=== PATIENT | male | born 1980 | race Caucasian/White ===

== ENCOUNTER 2022-11-07 07:41 | Emergency (ER) | payer SELFPAY ==
[2022-11-07 07:51] VITALS: BP 144/101; PULSE 62; RESP 20; TEMP 36.6; O2SAT 98; BMI 26.4
--- NOTE | 2022-11-07 07:57 | XR_ITS ---
FINAL REPORT CLINICAL HISTORY: low back pain FINDINGS: No fracture is identified. There is mild degenerative disc disease greatest at L1-2. Alignment is normal. IMPRESSION: Mild degenerative disc disease. Reviewed, Interpreted and Dictated by Jenni Villa MD Transcribed by Gwendolyn Lui Authenticated and [facility]
--- NOTE | 2022-11-07 07:58 | HMH.EDGENADL ---
Discharge Plan Disposition Patient Disposition: Home, Self-Care Condition: Good Prescriptions Prescriptions: New methocarbamol 750 mg tablet 750 mg PO Q8H PRN (Reason: pain) Qty: 20 0RF naproxen 500 mg tablet 500 mg PO Q8H PRN (Reason: pain) Qty: 20 0RF Referrals Follow up/Referrals: Provider,Referral, [Primary Care Provider] - See instructions Activity Restrictions/Add. Instructions Additional Instructions/Restrictions: You were evaluated in the emergency department today. Please follow-up with your primary care provider over the next 3 days. 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 You may also take Tylenol in addition to these. Return to the emergency department for new or worsening symptoms. Clinical Impressions Clinical Impression: Strain of lumbar region Stand Alone Forms Stand Alone Forms: Work/School Release Instructions Patient Instructions: DI for Low Back Pain Discharge ED Provider: Shelly Brand General Adult HPI General Chief complaint: Back Pain/Injury Stated complaint: Lower RT back pain Time Seen by Provider: 11/07/22 07:57 Mode of Arrival: Ambulatory Source of Information: Patient Limitations: No Limitations Description of Symptoms (Recalled from ER Triage Doc. by RN): pt to ed c/o lower back pain. pt states yesterday at approx 1pm he was bent over a counter talking and when he stood up he had sudden pain in his back. pt denies urinary symptoms. History of Present Illness HPI narrative: This patient is a 42-year-old male who reports that he has issues with chronic back pain presenting to the emergency department for evaluation of acute exacerbation of back pain. He states that he was bending over a counter for an extended period of time, and when he stood up he felt pain on the right side of his low back. Since then, he has had pain with any sort of movement, especially twisting and turning. This happened yesterday. He took Aleve at home last night without good improvement. He has not tried any medications today. He denies any other concerns, such as numbness, tingling, saddle anesthesia, incontinence, retention, or other concerns. His pain is nonradiating. Related Data Previous Rx's Medication Instructions Recorded methocarbamol 750 mg tablet 750 mg PO Q8H PRN pain #20 tabs 11/07/22 naproxen 500 mg tablet 500 mg PO Q8H PRN pain #20 tabs 11/07/22 Allergies Allergy/AdvReac Type Severity Reaction Status Date / Time No Known Allergies Allergy Verified 11/07/22 07:56 [facility] Disclaimer: The information contained in this section may have been updated after the patient was seen, as this information can be updated by other users. Social History Smoking Status: Current every day smoker alcohol intake: never current occupational status: employed Travel in the last 8 weeks: None ROS Obtained: Yes All systems reviewed & no additional complaints except as documented 14 point review of systems obtained and negative except as mentioned in HPI Physical Exam General General appearance: alert and in no apparent distress Head Head exam: atraumatic and normocephalic Eye Eye exam: Present normal appearance, PERRL and EOMI ENT ENT exam: Present normal exam, normal oropharynx and mucous membranes moist Neck Neck exam: Present normal inspection, full ROM and trachea midline; Absent tenderness Chest Chest inspection: Present normal inspection and symmetric chest wall rise Respiratory Respiratory exam: Present normal lung sounds bilaterally; Absent respiratory distress or wheezes Cardiovascular Cardiovascular exam: Present regular rate and normal rhythm Abdominal Exam Abdominal exam: Present soft; Absent distention, tenderness or guarding Extremities Exam Extremities exam: Present normal inspection and full ROM; Absent tenderness or edema Back Exam Back exam: Present paraspinal tenderness (
[2022-11-07 09:06] VITALS: BP 151/100; PULSE 59; RESP 18; TEMP 36.6; O2SAT 99
== END 2022-11-07 09:07 | disposition home or self-care (01) ==
PROVIDERS: Emergency Provider Emergency Medicine
DX: X50.1XXA Overexertion from prolonged static or awkward postures, initial encounter; F17.200 Nicotine dependence, unspecified, uncomplicated; S39.012A Strain of muscle, fascia and tendon of lower back, initial encounter
CPT/HCPCS: 72100; 99283; 99284

== ENCOUNTER 2022-11-10 08:08 | Emergency (ER) | payer SELFPAY ==
[2022-11-10 08:08] VITALS: BP 137/83; PULSE 41; RESP 18; TEMP 36.9; O2SAT 100; BMI 26.4
[2022-11-10 08:23] VITALS: BP 137/83; PULSE 46; RESP 18; O2SAT 99
[2022-11-10 08:31] VITALS: BP 141/70; PULSE 46; RESP 18; O2SAT 99
[2022-11-10 09:01] VITALS: BP 143/74; PULSE 46; O2SAT 100
--- NOTE | 2022-11-10 09:05 | PC.NURSE ---
rounded on pt asked about medication the Dr might call in something new and if he should continue to take meds hes on now or stop them, spoke with er md and he says he sending in new medication and stop taking other but keep it do not discard its, updating pt with info received from er
--- NOTE | 2022-11-10 09:16 | ECG_ITS ---
APPROVED REPORT Exam: Resting ECG HR:68 bpm ECG Measurements Heart Rate 68 AXES HI 161 P 66 QRSd 97 QRS 43 QT 386 T 58 QTc 404 Conclusion SINUS RHYTHM WITH FREQUENT VENTRICULAR PREMATURE COMPLEXES IN A BIGEMINAL PATTERN ABNORMAL RHYTHM ECG UNCONFIRMED REPORT Electronically signed by : Kike Perez MD 11/10/2022 15:00:04
--- NOTE | 2022-11-10 09:20 | PC.NURSE ---
MD notified of patient's bradycardia upon discharge. Obtained an EKG prior to discharge; MD requested us to give patient information for cardiology office. Patient ambulated out of ER in no obvious distress at this time.
--- NOTE | 2022-11-10 09:23 | HMH.EDGENADL ---
Discharge Plan Disposition Patient Disposition: Home, Self-Care Condition: Fair Prescriptions Prescriptions: New tizanidine 4 mg tablet 4 mg PO TID PRN (Reason: muscle spasticity) Qty: 30 0RF No Action methocarbamol 750 mg tablet 750 mg PO Q8H PRN (Reason: pain) Qty: 20 0RF naproxen 500 mg tablet 500 mg PO Q8H PRN (Reason: pain) Qty: 20 0RF Referrals Follow up/Referrals: Provider,Referral, MD [Primary Care Provider] - See instructions Clinical Impressions Clinical Impression: Strain of lumbar region Stand Alone Forms Stand Alone Forms: Work/School Release Instructions Patient Instructions: DI for Low Back Pain Discharge ED Provider: Broderick Gallegos General Adult HPI General Chief complaint: Back Pain/Injury Stated complaint: back pain, no accident Time Seen by Provider: 11/10/22 08:15 Mode of Arrival: Ambulatory Source of Information: Patient Limitations: No Limitations Description of Symptoms (Recalled from ER Triage Doc. by RN): Patient ambulated to room upon arrival to ED Patient stated he was seen in the ED on Sunday and was sent home on Naproxen and Robaxin. He has been taking both since being discharged and stated he started getting better Sunday but then got worse after. Patient said he took his meds at 0600 and is still in a lot of pain. History of Present Illness HPI narrative: Patient is a 42-year-old male with past medical history of lumbar stenosis who presents with concern for back pain. He says that he was seen a few days ago for right-sided low back pain. He says that he tried to go back to work today and was sent home because he was in so much pain. He denies any numbness or tingling to his extremities. He has been taking his naproxen and Robaxin as prescribed which is helping a little but says that he still has quite a bit of pain. Denies any bowel or bladder incontinence. The pain is worse with movement. Relieved with rest. Related Data Previous Rx's Medication Instructions Recorded methocarbamol 750 mg tablet 750 mg PO Q8H PRN pain #20 tabs 11/07/22 naproxen 500 mg tablet 500 mg PO Q8H PRN pain #20 tabs 11/07/22 tizanidine 4 mg tablet 4 mg PO TID PRN muscle spasticity 11/10/22 #30 tabs Allergies Allergy/AdvReac Type Severity Reaction Status Date / Time No Known Allergies Allergy Verified 11/07/22 07:56 [facility] Disclaimer: The information contained in this section may have been updated after the patient was seen, as this information can be updated by other users. Social History (Updated 11/07/22 @ 09:20 by Shelly Brand DO) Smoking Status: Current every day smoker alcohol intake: never current occupational status: employed Travel in the last 8 weeks: None ROS Obtained: Yes All systems reviewed & no additional complaints except as documented Physical Exam General General appearance: alert and in no apparent distress Head Head exam: atraumatic, normocephalic and normal inspection Eye Eye exam: Present normal appearance and PERRL ENT ENT exam: Present normal exam, mucous membranes moist and normal external ear exam Neck Neck exam: Present normal inspection and trachea midline Chest Chest inspection: Present normal inspection and symmetric chest wall rise Respiratory Respiratory exam: Present normal lung sounds bilaterally; Absent respiratory distress Cardiovascular Cardiovascular exam: Present normal rhythm and bradycardia Abdominal Exam Abdominal exam: Present soft; Absent distention, tenderness or guarding Extremities Exam Extremities exam: Present normal inspection; Absent edema Back Exam Back exam: Present tenderness (Right low paraspinal region) Neurological Exam Neurological exam: Present alert and oriented X3 Psychiatric Psychiatric exam: Present normal affect and normal mood Skin Skin exam: Present warm, dry, intact and normal color Medical Decision Making Medical Records Medical records reviewed: Yes I re
[2022-11-10 09:27] VITALS: BP 139/84; PULSE 40; RESP 18; TEMP 36.9
== END 2022-11-10 09:20 | disposition home or self-care (01) ==
PROVIDERS: Emergency Provider Student in an Organized Health Care Education/Training Program
DX: S39.012A Strain of muscle, fascia and tendon of lower back, initial encounter (principal); M48.061 Spinal stenosis, lumbar region without neurogenic claudication; F17.200 Nicotine dependence, unspecified, uncomplicated; X58.XXXA Exposure to other specified factors, initial encounter; R00.1 Bradycardia, unspecified
CPT/HCPCS: 93005; 96372; 99283; 99284

== ENCOUNTER 2022-11-15 07:35 | Emergency (ER) | payer SELFPAY ==
[2022-11-15] VITALS (7 sets, daily range): BP systolic 118–139; BP diastolic 67–102; PULSE 56–70; RESP 17–18; TEMP 36.4–37; O2SAT 96–100; BMI 26.4
[2022-11-15 07:43] LABS: Microscopic, Urine URINE MICROSCOPIC (MICROSCOPIC)
[2022-11-15 07:44] LABS: Appearance,Urine CLEAR (Clear); Bilirubin,Urine Negative (Negative); Blood, Urine Negative (Negative); Color,Urine YELLOW (Yellow); Glucose,Urine (UA) Negative (Negative); Ketones,Urine Negative (Negative); Leukocyte Esterase,Urine Negative (Negative); Nitrate,Urine Negative (Negative); PH,Urine 6.5 (5.0-8.5); Protein,Urine Negative (Negative); Urobilinogen,Urine 0.2 EU/dl (0.2)
--- NOTE | 2022-11-15 07:54 | PC.NURSE ---
ED MD AT BEDSIDE FOR EVALUATION
[2022-11-15 07:56] LABS: Bacteria,Urine Trace /lpf; Squamous Epithelial Cell,Urine Occasional #/hpf (0-5); WBC,Urine Occasional #/hpf (0-3)
--- NOTE | 2022-11-15 07:57 | CT_ITS ---
FINAL REPORT TECHNIQUE: Axial imaging of the lumbar spine was obtained without contrast. Sagittal and coronal reformatted images were also obtained and reviewed. This study was performed with techniques to keep radiation doses as low as reasonably achievable (ALARA). Individualized dose reduction techniques using automated exposure control or adjustment of mA and/or kV according to the patient's size were employed. CLINICAL HISTORY: right lower back pain FINDINGS: There is no fracture. The vertebral alignment is normal. Disc degeneration is seen at multiple levels. There are mild degenerative changes.There is no evidence of significant central canal stenosis. L1-L2: An annular bulge and osteophytes are present. There is mild bilateral neural foraminal narrowing. L2-L3: An annular bulge is present with moderate bilateral neural foraminal narrowing. L3-L4: An annular bulge and osteophytes are present. There is moderate bilateral neural foraminal narrowing. L4-L5: An annular bulge is present. There is a small central disc protrusion with severe bilateral neural foraminal narrowing. L5-S1: An annular bulge and facet arthropathy are present. There is severe right and moderate left neural foraminal narrowing. Note is made of several less than 3 mm nonobstructing right renal stones. IMPRESSION: Multilevel degenerative disc disease and spondylosis. Small central disc protrusion at L4-5 with severe bilateral neural foraminal narrowing. Right nephrolithiasis. Reviewed, Interpreted and Dictated by Seven Vicente III, MD Transcribed by Shanel Spann Authenticated and [facility]
--- NOTE | 2022-11-15 08:01 | HMH.EDGENADL ---
Discharge Plan Disposition Patient Disposition: Home, Self-Care Condition: Good Prescriptions Prescriptions: New cyclobenzaprine 10 mg tablet 10 mg PO Q8H Qty: 14 0RF prednisone 20 mg tablet 60 mg PO DAILY 4 Days Qty: 12 0RF No Action methocarbamol 750 mg tablet 750 mg PO Q8H PRN (Reason: pain) Qty: 20 0RF naproxen 500 mg tablet 500 mg PO Q8H PRN (Reason: pain) Qty: 20 0RF tizanidine 4 mg tablet 4 mg PO TID PRN (Reason: muscle spasticity) Qty: 30 0RF Referrals Follow up/Referrals: Provider,Referral, MD [Primary Care Provider] - See instructions Clinical Impressions Clinical Impression: Strain of lumbar region Instructions Patient Instructions: DI for Low Back Pain Print Language Print Language: Cameroonian Discharge ED Provider: Elan Corrales General Adult HPI General Chief complaint: Back Pain/Injury Stated complaint: Lower RT back pain Time Seen by Provider: 11/15/22 10:09 Mode of Arrival: Ambulatory Limitations: No Limitations Description of Symptoms (Recalled from ER Triage Doc. by RN): PT REPORTS ONGOING RIGHT LOWER BACK PAIN. REPORTS BACK SPASMS. RECENTLY SEEN FOR SAME PAIN, WORSE TODAY AFTER WORK YESTERDAY. NO LOSS OF BOWEL OR BLADDER. NO RADIATION History of Present Illness HPI narrative: Patient presents to the emergency department with low back pain mostly right-sided. The patient has been seen in the emergency department 2 times in the last few weeks. The patient states that his pain had somewhat improved, went to work and then after work started hurting again. He states that he has had no change in his symptoms. He describes right lower back pain which is not radiating. He denies any numbness, tingling or weakness in any of his arms or legs. Denies any dysuria, hematuria or frequency. Denies any bowel or bladder loss or retention. Denies any new trauma. Related Data Previous Rx's Medication Instructions Recorded methocarbamol 750 mg tablet 750 mg PO Q8H PRN pain #20 tabs 11/07/22 naproxen 500 mg tablet 500 mg PO Q8H PRN pain #20 tabs 11/07/22 tizanidine 4 mg tablet 4 mg PO TID PRN muscle spasticity 11/10/22 #30 tabs cyclobenzaprine 10 mg tablet 10 mg PO Q8H #14 tabs 11/15/22 prednisone 20 mg tablet 60 mg PO DAILY 4 days #12 tabs 11/15/22 Allergies Allergy/AdvReac Type Severity Reaction Status Date / Time No Known Allergies Allergy Verified 11/07/22 07:56 [facility] Disclaimer: The information contained in this section may have been updated after the patient was seen, as this information can be updated by other users. Surgical History (Updated 11/15/22 @ 08:55 by Viola Gonzalez RN) History of mandibular surgery Family History (Updated 11/15/22 @ 08:55 by Viola Gonzalez RN) Other No significant family history Social History (Updated 11/15/22 @ 08:55 by Viola Gonzalez RN) Smoking Status: Current every day smoker alcohol intake: never current occupational status: employed Travel in the last 8 weeks: None ROS Obtained: Yes All systems reviewed & no additional complaints except as documented Musculoskeletal Musculoskeletal: Reports back pain Physical Exam General General appearance: alert and in no apparent distress Head Head exam: atraumatic, normocephalic and normal inspection Eye Eye exam: Present normal appearance, PERRL and EOMI Respiratory Respiratory exam: Present normal lung sounds bilaterally and respiratory distress Cardiovascular Cardiovascular exam: Present regular rate, normal rhythm and normal heart sounds Abdominal Exam Abdominal exam: Present soft and normal bowel sounds Extremities Exam Extremities exam: Present normal inspection and full ROM Back Exam Back exam: Present other (Patient has point tenderness in the right lower back at the level of L4. This radiates to the right lateral back.) Neurological Exam Neurological exam: Present alert, oriented X3 and CN II-XII intact Psychiatric Psychia
--- NOTE | 2022-11-15 08:08 | PC.NURSE ---
PT MEDICATED PER EMAR, NO FURTHER NEEDS AT THIS TIME. AT BEDSIDE. CALL LIGHT WITHIN REACH
--- NOTE | 2022-11-15 08:13 | PC.NURSE ---
checked on pt nothing needed at this time, significant other at bedside
--- NOTE | 2022-11-15 08:25 | PC.NURSE ---
pt to ct
--- NOTE | 2022-11-15 08:26 | PC.NURSE ---
PT TO CT
--- NOTE | 2022-11-15 08:32 | PC.NURSE ---
PT RETURNED FROM CT
--- NOTE | 2022-11-15 09:07 | PC.NURSE ---
checked on pt no complaints at this time, visitor at bedside
--- NOTE | 2022-11-15 09:33 | PC.NURSE ---
SPOKE WITH RADIOLOGY, CT REPORT BEING READ AT THIS TIME
== END 2022-11-15 10:22 | disposition home or self-care (01) ==
PROVIDERS: Emergency Medicine; Emergency Provider Emergency Medicine
DX: S33.5XXA Sprain of ligaments of lumbar spine, initial encounter (principal); F17.200 Nicotine dependence, unspecified, uncomplicated; X58.XXXA Exposure to other specified factors, initial encounter
CPT/HCPCS: 72131; 81001; 96372; 99283; 99284

== ENCOUNTER 2022-11-27 11:17 | Emergency (ER) | payer SELFPAY ==
[2022-11-27 11:17] VITALS: BP 138/89; PULSE 63; RESP 17; TEMP 36.5; O2SAT 99; BMI 26.4
--- NOTE | 2022-11-27 11:49 | HMH.EDGENADL ---
Discharge Plan Disposition Patient Disposition: Home, Self-Care Condition: Good Prescriptions Prescriptions: New naproxen [EC-Naproxen] 500 mg tablet,delayed release (DR/EC) 500 mg PO Q12H PRN (Reason: pain) Qty: 20 0RF metaxalone 800 mg tablet 800 mg PO TID PRN (Reason: muscle pain) Qty: 20 0RF No Action methocarbamol 750 mg tablet 750 mg PO Q8H PRN (Reason: pain) Qty: 20 0RF naproxen 500 mg tablet 500 mg PO Q8H PRN (Reason: pain) Qty: 20 0RF tizanidine 4 mg tablet 4 mg PO TID PRN (Reason: muscle spasticity) Qty: 30 0RF cyclobenzaprine 10 mg tablet 10 mg PO Q8H Qty: 14 0RF prednisone 20 mg tablet 60 mg PO DAILY 4 Days Qty: 12 0RF Referrals Follow up/Referrals: Provider,Referral, MD [Primary Care Provider] - See instructions Activity Restrictions/Add. Instructions Additional Instructions/Restrictions: Avoid heavy lifting or straining. Follow-up with [facility] neurosurgical services and or pain management. Follow-up with [facility]. Her telephone number [phone]: Clinical Impressions Clinical Impression: DDD (degenerative disc disease), lumbar Stand Alone Forms Stand Alone Forms: Work/School Release Instructions Patient Instructions: DI for Low Back Pain Discharge ED Provider: Edgar Myers General Adult HPI General Chief complaint: Back Pain/Injury Stated complaint: Lower back pain Time Seen by Provider: 11/27/22 11:26 Mode of Arrival: Ambulatory Source of Information: Patient Limitations: No Limitations Description of Symptoms (Recalled from ER Triage Doc. by RN): pt to the ED with reoccurent chronic rigth sided lower back for weeks. 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 History of Present Illness HPI narrative: Patient presents with ongoing low back pain for the last month. He has been seen here 4 times previously this month and notes persistent pain that got worse this morning. He denies any bowel or bladder incontinence or new weakness to the extremities. Records reviewed and he did have CT does show disc degenerative disc disease of the lumbar spine. Related Data Previous Rx's Medication Instructions Recorded methocarbamol 750 mg tablet 750 mg PO Q8H PRN pain #20 tabs 11/07/22 naproxen 500 mg tablet 500 mg PO Q8H PRN pain #20 tabs 11/07/22 tizanidine 4 mg tablet 4 mg PO TID PRN muscle spasticity 11/10/22 #30 tabs cyclobenzaprine 10 mg tablet 10 mg PO Q8H #14 tabs 11/15/22 prednisone 20 mg tablet 60 mg PO DAILY 4 days #12 tabs 11/15/22 metaxalone 800 mg tablet 800 mg PO TID PRN muscle pain #20 11/27/22 tabs naproxen 500 mg tablet,delayed 500 mg PO Q12H PRN pain #20 tabs 11/27/22 release (EC-Naproxen) Allergies Allergy/AdvReac Type Severity Reaction Status Date / Time No Known Allergies Allergy Verified 11/07/22 07:56 [facility] Disclaimer: The information contained in this section may have been updated after the patient was seen, as this information can be updated by other users. Surgical History History of mandibular surgery Family History Other No significant family history Social History Smoking Status: Never smoker alcohol intake: never current occupational status: employed Travel in the last 8 weeks: None ROS Obtained: Yes All systems reviewed & no additional complaints except as documented Physical Exam General General appearance: alert and in no apparent distress Head Head exam: atraumatic, normocephalic and normal inspection Eye Eye exam: Present normal appearance, PERRL and EOMI ENT ENT exam: Present normal exam, normal oropharynx, mucous mem
[2022-11-27 12:26] VITALS: BP 135/71; PULSE 81; RESP 17; TEMP 36.4; O2SAT 98
== END 2022-11-27 12:37 | disposition home or self-care (01) ==
PROVIDERS: Emergency Provider Emergency Medicine
DX: M51.36 Other intervertebral disc degeneration, lumbar region (principal); G89.29 Other chronic pain
CPT/HCPCS: 96372; 99283; 99284

== ENCOUNTER 2022-12-06 10:15 | Emergency (ER) | payer MEDICAID, SELFPAY ==
[2022-12-06 10:16] VITALS: BP 145/85; PULSE 51; RESP 18; TEMP 36.6; O2SAT 100; BMI 26.4
--- NOTE | 2022-12-06 10:50 | EXP.UTC ---
Discharge Plan Disposition Patient Disposition: Home, Self-Care Condition: Good Prescriptions Prescriptions: New methylprednisolone 4 mg Tablets,Dose Pack 4 mg PO DIRECTED Qty: 21 0RF No Action methocarbamol 750 mg tablet 750 mg PO Q8H PRN (Reason: pain) Qty: 20 0RF naproxen 500 mg tablet 500 mg PO Q8H PRN (Reason: pain) Qty: 20 0RF tizanidine 4 mg tablet 4 mg PO TID PRN (Reason: muscle spasticity) Qty: 30 0RF cyclobenzaprine 10 mg tablet 10 mg PO Q8H Qty: 14 0RF prednisone 20 mg tablet 60 mg PO DAILY 4 Days Qty: 12 0RF naproxen [EC-Naproxen] 500 mg tablet,delayed release (DR/EC) 500 mg PO Q12H PRN (Reason: pain) Qty: 20 0RF metaxalone 800 mg tablet 800 mg PO TID PRN (Reason: muscle pain) Qty: 20 0RF Referrals Follow up/Referrals: Provider,Referral, MD [Primary Care Provider] - See instructions Activity Restrictions/Add. Instructions Additional Instructions/Restrictions: Go home and rest. It would be best if you rested tomorrow too. No heavy lifting. No twisting. Follow up with your regular doctor. GO TO THE ER FOR ANY WORSENING SYMPTOMS OR CONCERN, ESPECIALLY BOWEL OR BLADDER ISSUES, SADDLE AREA NUMBNESS, FEVER, ETC Clinical Impressions Clinical Impression: Low back pain Stand Alone Forms Stand Alone Forms: Work/School Release Instructions Patient Instructions: DI for Low Back Pain Discharge ED Provider: [facility] General Stated complaint: back pain, no accident Mode of Arrival: Ambulatory Source of Information: Patient Limitations: No Limitations Time Seen by Provider: 12/06/22 10:49 Description of Symptoms (Recalled from Triage Doc. by RN): Patient complaint of right lower back pain. States it has been going on for awhile and has been referred to [facility] by this emergency room. States when he calls for an appointment that they are requesting a referral. States he presents today because the pain has gotten worse. HEENT Symptoms (Recalled from RN notes): No Resp Symptoms (Recalled from RN notes): No Skin Symptoms (Recalled from RN notes): No MS Symptoms (Recalled from RN notes): Yes Functional Status (Recalled from RN notes): wnl History of Present Illness Provider Complaint: He c/o low back pain. He denies any injury. He denies any bowel or bladder complaints. Related Data Previous Rx's Medication Instructions Recorded methocarbamol 750 mg tablet 750 mg PO Q8H PRN pain #20 tabs 11/07/22 naproxen 500 mg tablet 500 mg PO Q8H PRN pain #20 tabs 11/07/22 tizanidine 4 mg tablet 4 mg PO TID PRN muscle spasticity 11/10/22 #30 tabs cyclobenzaprine 10 mg tablet 10 mg PO Q8H #14 tabs 11/15/22 prednisone 20 mg tablet 60 mg PO DAILY 4 days #12 tabs 11/15/22 metaxalone 800 mg tablet 800 mg PO TID PRN muscle pain #20 11/27/22 tabs naproxen 500 mg tablet,delayed 500 mg PO Q12H PRN pain #20 tabs 11/27/22 release (EC-Naproxen) methylprednisolone 4 mg tablets in 4 mg PO DIRECTED #21 tabs 12/06/22 a dose pack Allergies Allergy/AdvReac Type Severity Reaction Status Date / Time No Known Allergies Allergy Verified 11/07/22 07:56 Worker's Comp Is this a Worker's Comp case?: No [facility] Disclaimer: The information contained in this section may have been updated after the patient was seen, as this information can be updated by other users. Surgical History History of mandibular surgery Family History Other No significant family history Social History Smoking Status: Never smoker alcohol intake: never current occupational status: employed Travel in the last 8 weeks: None ROS Obtained: Yes All systems reviewed & no additional complaints except as documented Constitutional Constitutional: Denies chills and Denies fever(s) Eyes Eyes: Denies eye
[2022-12-06 11:17] VITALS: BP 145/85; PULSE 51; RESP 18; TEMP 36.6; O2SAT 100
== END 2022-12-06 11:18 | disposition home or self-care (01) ==
PROVIDERS: Emergency Provider Nurse Practitioner Family
DX: M54.50 Low back pain, unspecified (principal)
CPT/HCPCS: 99204; 99212; G0463

== ENCOUNTER → 2023-01-10 10:54 | Outpatient (CLI) | payer MEDICAID, SELFPAY | PROVIDERS: PCP Emergency Medicine; Visit Provider Physician Assistant | DX: I49.3 Ventricular premature depolarization (principal); F10.21 Alcohol dependence, in remission; Z82.49 Family history of ischemic heart disease and other diseases of the circulatory system | CPT/HCPCS: 93225; 93226 ==

== ENCOUNTER → 2023-01-11 14:01 | Outpatient (CLI) | payer MEDICAID, SELFPAY ==
[2023-01-11 14:17] LABS: Basophils # 0.1 K/mm3 (0-0.2); Basophils % 0.9 % (0.1-2.0); Eosinophils # 0.4 K/mm3 (0.0-0.4); Eosinophils % 3.6 % (0.1-12.0); Hematocrit 47.3 % (42.0-52.0); Lymphocytes # 3.8 K/mm3 (0.7-4.5); Lymphocytes % 37.7 % (10-50); Mean Corpuscular HGB Conc 33.9 g/dL (31.8-35.4); Mean Corpuscular Hemoglobin 29.6 pg (27.0-31.2); Mean Corpuscular Volume 87.3 fl (80-94); Monocytes # 0.4 K/mm3 (0.1-1.0); Monocytes % 4.2 % (1.7-9.3); Neutrophils # 5.4 K/mm3 (1.8-7.8); Neutrophils % 53.7 % (37.0-80.0); Platelet Count 254 K/mm3 (142-424); Red Blood Count 5.42 M/mm3 (4.60-6.20); Red Cell Distribution Width 13.1 % (11.5-17.5); White Blood Count 10.1 K/mm3 (4.8-10.8)
[2023-01-11 15:04] LABS: Alanine Aminotransferase 24 U/L (12-78); Albumin Level 4.7 g/dl (3.5-5.0); Alkaline Phosphatase 58 U/L (38-126); Anion Gap 12.6 mEq/L (5-15); Aspartate Amino Transferase 28 U/L (17-59); Bilirubin,Indirect 0.4 mg/dL (0.0-0.9); Bilirubin,Total 0.4 mg/dl (0.2-1.3); Bilirubin,Unconjugated 0.5 mg/dL (0.0-1.1); Blood Urea Nitrogen 13 mg/dl (9-20); Calcium 9.5 mg/dl (8.4-10.2); Carbon Dioxide 27 mmol/L (22.0-30.0); Chloride 105 mmol/L (98-107); Chol/HDL Ratio 3.3 (1-3.5); Cholesterol 218 mg/dl (140-200); Estimated Glomerular Filt Rate 82 ml/min (>60); GFR (African American) 99 ML/MIN (>60); Glucose 121 mg/dl (74-100); HDL Cholesterol 66 mg/dl (40-60); Magnesium 1.7 mg/dl (1.6-2.3); Potassium 4.6 mmoL/L (3.5-5.1); Sodium 140 mmol/L (136-145); Total Protein,Serum 7.1 g/dl (6.3-8.2); Triglycerides 207 mg/dl (30-150); VLDL Cholesterol 41 mg/dL (0-40)
[2023-01-11 15:29] LABS: Free T4 (Free Thyroxine) 1.05 ng/dl (0.78-2.19)
[2023-01-11 15:35] LABS: Thyroid Stimulating Hormone 1.25 uIU/mL (0.465-4.68)
== END ==
PROVIDERS: PCP Emergency Medicine; Visit Provider Physician Assistant
DX: R06.00 Dyspnea, unspecified (principal); I49.3 Ventricular premature depolarization; F10.21 Alcohol dependence, in remission; I11.9 Hypertensive heart disease without heart failure; I63.9 Cerebral infarction, unspecified; E11.9 Type 2 diabetes mellitus without complications; Z82.49 Family history of ischemic heart disease and other diseases of the circulatory system
CPT/HCPCS: 36415; 80048; 80061; 80076; 83735; 84439; 84443; 85025

== ENCOUNTER 2023-01-17 11:00 | Outpatient (RCR) | payer MEDICAID, SELFPAY ==
--- NOTE | 2022-12-15 17:26 | HMH.PTOPEV ---
PT Outpatient Evaluation Rehab PT Outpatient Evaluation Start: 12/15/22 15:57 Freq: Status: Active Protocol: Document 12/15/22 15:57 SOFIA (Rec: 12/15/22 17:26 KRISTIANLYNDON [id number]) E-signed By Luli Corbin, PT Outpatient Therapy Subjective History Subjective History Pt presents to the PT clinic with reports of R sided low back pain for ~ 1 month. Pt reports that at work he was going to stand up and felt like he was unable to move to a full upright position. Pt reports that he works at [employer]. Pt reports that he stands most of the day at work . Pt reports that he has tried massage, cold pack, hot pack and prescription medications to help. Pt reports mild relief with hot pack when using. Pt reports that sitting feels better than standing. Pt reports he is able to stand for ~30-45mins before it begins to hurt. PMH: HTN Chief Complaint Pain,Spasms,Stiff,Catches/ Locks,Gives out/Unstable, Weakness Symptom Type Ache,Throb,Sharp,Stabbing Symptoms Relieved By Rest/Positioning,Heat Symptoms Aggravated By Supine,Standing,Physical Activity,Twisting,Walking, Lifting Prior Functional Limitations None Current Functional Limitations Lifting,Housework,Dressing, Driving,Sleeping,Standing, Squatting,Recreation Activity, Walking,Stairs,Balance,Bending /Stooping Symptom Description Activity Dependent Level of pain today (0-10) 6 Pain scale - at its best (0-10) 2 Pain scale - at its worst (0-10) 8 Lumbopelvic Eval Posture Lumbar Spine Posture Standing Position Increased Lordosis Assistive device Assistive Devices None / NA Palapation tenderness right lumbar spinal tenderness Yes paraspinal tenderness Yes Lumbar/Sacral Palpation Findings Tenderness,Trigger Point, Muscle Guarding Lumbar/Sacral Palpation Overall Comment TTP throughout R lumbar paraspinals and lumbosacral fascia Accessory Movement
== END 2023-01-17 11:05 | disposition home or self-care (01) ==
LOC: PT 11:00
PROVIDERS: PCP Nurse Practitioner; Visit Provider Nurse Practitioner
DX: M54.50 Low back pain, unspecified (principal); M51.36 Other intervertebral disc degeneration, lumbar region
CPT/HCPCS: 97010; 97014; 97035; 97110; 97140; 97163; G0283

== ENCOUNTER 2023-06-12 07:50 | Emergency (ER) | payer MEDICAID, SELFPAY ==
[2023-06-12 07:51] VITALS: BP 148/98; PULSE 70; RESP 18; TEMP 36.6; O2SAT 100; BMI 25.7
--- NOTE | 2023-06-12 07:56 | HMH.EDGENADL ---
Discharge Plan Disposition Patient Disposition: Home, Self-Care Condition: Good Prescriptions Prescriptions: New sulfamethoxazole-trimethoprim [Bactrim] 400-80 mg tablet 1 tab PO BID 7 Days Qty: 14 0RF No Action diclofenac sodium 75 mg tablet,delayed release (DR/EC) 75 mg PO BID Qty: 60 2RF cyclobenzaprine 10 mg tablet 10 mg PO TID PRN (Reason: muscle spasm) Qty: 30 0RF trazodone 50 mg tablet 50 - 100 mg PO HS PRN (Reason: sleep) Qty: 60 0RF spinosad 0.9 % suspension 120 ml topical Q7D Qty: 120 0RF rosuvastatin [Crestor] 20 mg tablet 20 mg PO DAILY Qty: 30 2RF Referrals Follow up/Referrals: Yadira Ireland APRN [Primary Care Provider] - See instructions Clinical Impressions Clinical Impression: Swelling Instructions Patient Instructions: Contusion Discharge ED Provider: Ha Hernandez General Adult HPI General Stated complaint: lips swollen Time Seen by Provider: 06/12/23 07:52 History of Present Illness HPI narrative: 43-year-old male with no significant past medical history coming into the ED with complaints of swollen lip. Patient notes that last night prior to going to bed, a can fell on top of his face and specifically his upper lip patient notes that he immediately had pain in mild swelling shortly after, patient went to go pop a pimple on his upper lip. This morning, upon awakening, patient noted that his upper lip was significantly more swollen and decided come into the ED for evaluation due to concerns for infection. No fevers, chills, trouble breathing. Related Data Previous Rx's Medication Instructions Recorded cyclobenzaprine 10 mg tablet 10 mg PO TID PRN muscle spasm #30 12/08/22 tabs diclofenac sodium 75 mg 75 mg PO BID #60 tabs 12/08/22 tablet,delayed release trazodone 50 mg tablet 50 - 100 mg PO HS PRN sleep #60 12/21/22 tabs spinosad 0.9 % topical suspension 120 ml topical Q7D Lice 01/05/23 exposure/infestation 2 doses #120 mL rosuvastatin 20 mg tablet (Crestor) 20 mg PO DAILY #30 tabs 01/11/23 sulfamethoxazole 400 1 tab PO BID 7 days #14 tabs 06/12/23 mg-trimethoprim 80 mg tablet (Bactrim) Allergies Allergy/AdvReac Type Severity Reaction Status Date / Time hydroxyzine AdvReac Severe Agitated Verified 01/10/23 10:33 [facility] Disclaimer: The information contained in this section may have been updated after the patient was seen, as this information can be updated by other users. Medical History DDD (degenerative disc disease), lumbar Glaucoma History of abnormal electrocardiogram HLD (hyperlipidemia) HTN (hypertension), benign Insomnia Surgical History History of mandibular surgery Family History Other No significant family history Social History Smoking Status: Never smoker alcohol intake: never current occupational status: employed Travel in the last 8 weeks: None ROS Obtained: Yes All systems reviewed & no additional complaints except as documented Physical Exam General General appearance: alert and in no apparent distress Head Head exam: atraumatic, normocephalic and normal inspection Eye Eye exam: Present normal appearance, PERRL and EOMI; Absent scleral icterus or nystagmus ENT ENT exam: Present normal exam, mucous membranes moist, normal external ear exam and other (Swelling of R side of upper lip, no erythema, warmth to touch) Neck Neck exam: Present normal inspection, full ROM and trachea midline Chest Chest inspection: Present normal inspection and symmetric chest wall rise; Absent tenderness Respiratory Respiratory exam: Present normal lung sounds bilaterally; Absent respiratory distress, wheezes or accessory muscle use Cardiovascular Cardiovascular exam: Present regular rate, normal rhyth
[2023-06-12 08:09] VITALS: BP 148/98; PULSE 70; RESP 18; TEMP 36.6; O2SAT 100
== END 2023-06-12 08:09 | disposition home or self-care (01) ==
LOC: ER 08:16
PROVIDERS: Emergency Provider Emergency Medicine; PCP Nurse Practitioner
DX: R22.0 Localized swelling, mass and lump, head (principal); W20.8XXA Other cause of strike by thrown, projected or falling object, initial encounter
CPT/HCPCS: 99283

== ENCOUNTER 2023-09-24 10:59 | Emergency (ER) | payer MEDICAID, SELFPAY ==
[2023-09-24 11:25] VITALS: BP 149/73; PULSE 42; RESP 19; TEMP 36.9; O2SAT 98; BMI 33.6
[2023-09-24 11:55] LABS: Apearance,Urine Clear (Clear); Bilirubin,Urine Negative (Negative); Blood, Urine Negative (Negative); Color,Urine Dark Yellow (Yellow); Glucose,Urine (UA) Negative (Negative); Ketones,Urine Negative (Negative); Protein,Urine Negative (Negative); Specific Gravity, Urine 1.025 (1.005-1.030); UTC Leukocyte Esterase,Urine Negative (Negative); UTC Nitrate,Urine Negative (Negative); Urobilinogen,Urine 0.2 EU/dl (0.2)
--- NOTE | 2023-09-24 11:56 | ED_ITS ---
Discharge Plan Disposition Patient Disposition: Home, Self-Care Condition: Good Prescriptions Prescriptions: No Action diclofenac sodium 75 mg tablet,delayed release (DR/EC) 75 mg PO BID Qty: 60 2RF cyclobenzaprine 10 mg tablet 10 mg PO TID PRN (Reason: muscle spasm) Qty: 30 0RF trazodone 50 mg tablet 50 - 100 mg PO HS PRN (Reason: sleep) Qty: 60 0RF spinosad 0.9 % suspension 120 ml topical Q7D Qty: 120 0RF rosuvastatin [Crestor] 20 mg tablet 20 mg PO DAILY Qty: 30 2RF sulfamethoxazole-trimethoprim [Bactrim] 400-80 mg tablet 1 tab PO BID 7 Days Qty: 14 0RF Referrals Follow up/Referrals: Yadira Ireland APRN [Primary Care Provider] - See instructions Activity Restrictions/Add. Instructions Additional Instructions/Restrictions: Your urine was sent for culture should be back in the next 3-5 days Follow up with your Family Doctor if no improvement or any worsening of symptoms Make sure to drink 6-8 glasses of water daily Clinical Impressions Clinical Impression: UTI symptoms Discharge ED Provider: Miryam David [facility] General Stated complaint: pain when urinating Mode of Arrival: Ambulatory Source of Information: Patient Limitations: No Limitations Time Seen by Provider: 09/24/23 11:56 Description of Symptoms (Recalled from Triage Doc. by RN): PATIENT C/O PELVIC PRESSURE AND URINARY FREQUENCY X 4 DAYS HEENT Symptoms (Recalled from RN notes): No Resp Symptoms (Recalled from RN notes): No Skin Symptoms (Recalled from RN notes): No MS Symptoms (Recalled from RN notes): No Functional Status (Recalled from RN notes): WNL History of Present Illness Provider Complaint: Patient states that he thinks he may have a UTI States that he has been having urgency and frequency and states that he has been having pressure like feeling at times like has to go so today he came in to get it checked Related Data Previous Rx's Medication Instructions Recorded cyclobenzaprine 10 mg tablet 10 mg PO TID PRN muscle spasm #30 12/08/22 tabs diclofenac sodium 75 mg 75 mg PO BID #60 tabs 12/08/22 tablet,delayed release trazodone 50 mg tablet 50 - 100 mg (1 - 2 x 50 mg) PO HS 12/21/22 PRN sleep #60 tabs spinosad 0.9 % topical suspension 120 ml topical Q7D Lice 01/05/23 exposure/infestation 2 doses #120 mL rosuvastatin 20 mg tablet (Crestor) 20 mg PO DAILY #30 tabs 01/11/23 sulfamethoxazole 400 1 tab PO BID 7 days #14 tabs 06/12/23 mg-trimethoprim 80 mg tablet (Bactrim) Allergies Allergy/AdvReac Type Severity Reaction Status Date / Time hydroxyzine AdvReac Severe Agitated Verified 01/10/23 10:33 Worker's Comp Is this a Worker's Comp case?: No [facility] Disclaimer: The information contained in this section may have been updated after the patient was seen, as this information can be updated by other users. Medical History DDD (degenerative disc disease), lumbar Glaucoma History of abnormal electrocardiogram HLD (hyperlipidemia) HTN (hypertension), benign Insomnia Surgical History History of mandibular surgery Family History Other No significant family history Social History Smoking Status: Unknown if ever smoked alcohol intake: never current occupational status: employed Travel in the last 8 weeks: None ROS Obtained: Yes All systems reviewed & no additional complaints except as documented and Yes Systems reviewed as appropriate & no additional complaints except as documented Constitutional Constitutional: Reports system reviewed and no additional complaints, except as documented, Reports as per HPI, Denies body ache, Denies chills and Denies fever(s) ENT Ears, Nose, Mouth, and Throat: Reports system reviewed and no additional complaints, except as documented and Reports as per HPI Cardiovascular Cardiovascular: Reports system reviewed and no additional complaints, except as documented and Reports as per HPI Respiratory Respiratory: Reports system reviewed and no additional complaints, except as documented and Reports as per HPI Gastrointestinal Gastrointestingal: Reports system reviewed and no additional complaints, except as documented and as per HPI; Denies abdominal pain Genitourinary Male Genitourinary: Reports system reviewed and no additional complaints, except as documented, Reports as per HPI, Reports urinary frequency, Reports urinary urgency and Reports other (pressure like feeling like he has to go) Physical Exam General General appearance: alert and in no apparent distress ENT ENT exam: Present mucous membranes moist Respiratory Respiratory exam: Present normal lung sounds bilaterally; Absent respiratory distress or wheezes Cardiovascular Cardiovascular exam: Present regular rate, normal rhythm and normal heart sounds Abdominal Exam Abdominal exam: Present soft and normal bowel sounds; Absent distention or tenderness Neurological Exam Neurological exam: Present alert, oriented X3 and normal gait Medical Decision Making Dada Inquiry Pt receiving controlled substance: No Dada was queried for this patient: No Vital Signs: 09/24/23 11:25 Temperature 98.4 F Temperature Source Oral Pulse Rate [Left Brachial] 42 L Respiratory Rate 19 Blood Pressure [Left Arm] 149/73 H Blood Pressure Mean [Left Arm] 98 Blood Pressure Source [Left Arm] Automatic Cuff Blood Pressure Position [Left Arm] Sitting 02 Sat by Pulse Oximetry 98 Oxygen Delivery Method Room Air Lab Data Lab results reviewed: Yes I reviewed the patient's lab results. Lab Results 09/24/23 11:29: Urine Color Dark yellow, Urine Appearance Clear, Urine pH 6.0, Ur Specific [place] 1.025, Urine Protein Negative, Urine Glucose (UA) Negative, Urine Ketones Negative, Urine Blood Negative, Urine Nitrate Negative, Urine Bilirubin Negative, Urine Urobilinogen 0.2, Ur Leukocyte Esterase Negative Orders (Tests/Meds): ORDERS Category Date Time Status Urine Culture Stat Micro 09/24/23 11:53 Ordered
[2023-09-24 12:04] VITALS: BP 149/73; PULSE 42; RESP 19; TEMP 36.9; O2SAT 98
[2023-09-26 05:58] LABS: Neisseria gonorrhoeae, NAA Negative (Negative)
== END 2023-09-24 13:06 | disposition home or self-care (01) ==
PROVIDERS: Emergency Provider Nurse Practitioner; PCP Nurse Practitioner
DX: R30.0 Dysuria (principal); R10.30 Lower abdominal pain, unspecified; B96.89 Other specified bacterial agents as the cause of diseases classified elsewhere; R35.0 Frequency of micturition; E78.5 Hyperlipidemia, unspecified; I10 Essential (primary) hypertension
CPT/HCPCS: 81003; 87086; 87491; 87591; 99212; 99214; G0463

== ENCOUNTER 2023-11-07 08:08 | Emergency (ER) | payer MEDICAID, SELFPAY ==
[2023-11-07 08:10] VITALS: BP 166/100; PULSE 86; RESP 18; TEMP 37.2; O2SAT 98; BMI 31.6
--- NOTE | 2023-11-07 08:52 | HMH.EDGENADL ---
Discharge Plan Disposition Patient Disposition: Home, Self-Care Condition: Good Prescriptions Prescriptions: New sulfamethoxazole-trimethoprim 800-160 mg tablet 1 tab PO BID 7 Days Qty: 14 0RF No Action diclofenac sodium 75 mg tablet,delayed release (DR/EC) 75 mg PO BID Qty: 60 2RF cyclobenzaprine 10 mg tablet 10 mg PO TID PRN (Reason: muscle spasm) Qty: 30 0RF trazodone 50 mg tablet 50 - 100 mg PO HS PRN (Reason: sleep) Qty: 60 0RF spinosad 0.9 % suspension 120 ml topical Q7D Qty: 120 0RF rosuvastatin [Crestor] 20 mg tablet 20 mg PO DAILY Qty: 30 2RF sulfamethoxazole-trimethoprim [Bactrim] 400-80 mg tablet 1 tab PO BID 7 Days Qty: 14 0RF Referrals Follow up/Referrals: Yadira Ireland APRN [Primary Care Provider] - See instructions Kirstin Watson DPM [Staff Physician] - See instructions (Paronychia L great toe) Activity Restrictions/Add. Instructions Additional Instructions/Restrictions: You were evaluated in the ER. Take the prescribed antibiotics as directed, do not skip doses, do not stop taking them early. Keep your foot clean and dry. Keep the toenail protected. Follow-up with podiatry, call them today to make an appointment. Also make an appointment with your primary care physician for reevaluation in a few days. Return to the ER with new, worsening, or otherwise concerning symptoms. Clinical Impressions Clinical Impression: Paronychia Discharge ED Provider: Akhil Munoz Adult [facility] General Chief complaint: Skin/Abscess/Foreign Body Stated complaint: ingrown toenail left foot, poss infected Time Seen by Provider: 11/07/23 08:47 Mode of Arrival: Family Vehicle Source of Information: Patient and Medical Record Limitations: No Limitations Description of Symptoms (Recalled from ER Triage Doc. by RN): Pt presents to ER with concerns for infected left great toe. States he often has ingrown toenails and has taken care of them 5x previously. Yesterday he removed aprrox 1 off of his L great toenail, medially. He has soaked it in epsom salts and also cleaned the area to rubbing alcohol post removal. Pt then used Triple antibiotic ointment, covered in badn aid and went to work. Swelling noted to the whole toe. Redness and scant amount of drainage present. Denies any significant PMH. Denies any daily medicine use. History of Present Illness HPI narrative: 43-year-old male presents to the ER with concerns of infected left great toe. He states he has previously taken care of his own ingrown toenails and did so yesterday. He reports removing a 1 inch shard from his left great toenail and clean the area, but today he woke up with redness and pus. Patient states his dad lost a leg due to a toe infection so he wanted to make sure it did not get worse. Patient is not having fevers or other associated symptoms at this time. He is not a diabetic, no chronic medical diagnoses. Related Data Previous Rx's Medication Instructions Recorded cyclobenzaprine 10 mg tablet 10 mg PO TID PRN muscle spasm #30 12/08/22 tabs diclofenac sodium 75 mg 75 mg PO BID #60 tabs 12/08/22 tablet,delayed release trazodone 50 mg tablet 50 - 100 mg (1 - 2 x 50 mg) PO HS 12/21/22 PRN sleep #60 tabs spinosad 0.9 % topical suspension 120 ml topical Q7D Lice 01/05/23 exposure/infestation 2 doses #120 mL rosuvastatin 20 mg tablet (Crestor) 20 mg PO DAILY #30 tabs 01/11/23 sulfamethoxazole 400 1 tab PO BID 7 days #14 tabs 06/12/23 mg-trimethoprim 80 mg tablet (Bactrim) sulfamethoxazole 800 1 tab PO BID 7 days #14 tabs 11/07/23 mg-trimethoprim 160 mg tablet Allergies Allergy/AdvReac Type Severity Reaction Status Date / Time hydroxyzine AdvReac Severe Agitated Verified 01/10/23 10:33 [facility] Disclaimer: The information contained in this section may have been updated after the patient was seen, as this information can be updated by other users. Medical History DDD (degenerative disc disease), lumbar Glaucoma History of abnormal electrocardiogram HLD (hyperlipidemia) HTN (hypertension), benign Insomnia Surgical History History of mandibular surgery Family History Other No significant family history Social History Smoking Status: Current some day smoker alcohol intake: never current occupational status: employed Travel in the last 8 weeks: None ROS Obtained: Yes All systems reviewed & no additional complaints except as documented Constitutional Constitutional: Denies chills and Denies fever(s) Musculoskeletal Musculoskeletal: Reports arthralgias (Left great toe pain) and Reports joint swelling (Left great toe swelling) Integumentary/Breasts Skin/Breast: Reports redness and Reports wounds (near the left great toenail) Physical Exam General General appearance: alert and in no apparent distress Head Head exam: atraumatic and normocephalic ENT ENT exam: Present mucous membranes moist Neck Neck exam: Present normal inspection and full ROM Chest Chest inspection: Present symmetric chest wall rise Respiratory Respiratory exam: Absent respiratory distress or stridor Cardiovascular Cardiovascular exam: Present regular rate and normal rhythm Extremities Exam Extremities exam: Present full ROM and other (Tenderness of the left great toe with swelling and mild findings of infection, range of motion full, neurovascularly intact) Neurological Exam Neurological exam: Present alert and oriented X3; Absent motor sensory deficit Psychiatric Psychiatric exam: Present normal affect and normal mood Skin Skin exam: Present warm, dry and other (Left great toe has findings of paronychia at the medial aspect. Already draining scant amount of purulence. No findings of active ingrown toenail. Mild cellulitic changes.) Medical Decision Making Dada Inquiry Pt receiving controlled substance: No Vital Signs: 11/07/23 08:10 Temperature 98.9 F Temperature Source Oral Pulse Rate [Right] 86 Respiratory Rate 18 Blood Pressure [Right Arm] 166/100 H Blood Pressure Mean [Right Arm] 122 02 Sat by Pulse Oximetry 98 Oxygen Delivery Method Room Air Medical Decision Narrative: In summary, this 43year old male presents to the emergency department today with left great toe pain, redness after self removing a ingrown toenail yesterday. On initial evaluation patient is hemodynamically stable, afebrile, exam notable for mild swelling and erythema of the left great toe on the medial aspect of the toenail, no findings of ingrown nail, it appears to have been removed. Mild purulent drainage, no obvious abscess. Differential includes but is not limited to ingrown toenail, paronychia, cellulitis. Patient does not require any labs or imaging. Foot was soaked in saline and Hibiclens. I prescribed Bactrim for outpatient management given the presence of purulent appearing cellulitis. I discussed this with the pharmacist prior to prescribing Bactrim since I considered the possibility of pseudomonal infection, however patient does not have comorbidities such as diabetes that would increase his risk, so pharmacist and I agree that Bactrim would be appropriate coverage. Patient is comfortable with this plan. I referred him to Dr. Watson with podiatry for outpatient follow-up. Patient was given instructions on symptomatic management, follow up instructions, and return precautions for the emergency department. Patient indicated understanding and was discharged in stable condition. Critical Care Critical Care Time Critical Care Time: No
--- NOTE | 2023-11-07 09:00 | PC.NURSE ---
pt foots soaking
[2023-11-07 09:17] VITALS: BP 150/99; PULSE 76; RESP 16; TEMP 37.1; O2SAT 100
== END 2023-11-07 09:22 | disposition home or self-care (01) ==
PROVIDERS: Emergency Provider Emergency Medicine; PCP Nurse Practitioner
DX: L03.032 Cellulitis of left toe (principal); I10 Essential (primary) hypertension; E78.5 Hyperlipidemia, unspecified; F17.210 Nicotine dependence, cigarettes, uncomplicated
CPT/HCPCS: 99283

== ENCOUNTER 2023-11-08 08:15 | Emergency (ER) | payer MEDICAID, SELFPAY ==
[2023-11-08 08:16] VITALS: BP 155/89; PULSE 76; RESP 18; TEMP 36.4; O2SAT 97; BMI 31.6
--- NOTE | 2023-11-08 08:30 | HMH.EDGENADL ---
Discharge Plan Disposition Patient Disposition: Home, Self-Care Condition: Good Chief Complaint: Upper Respiratory Infection Prescriptions Prescriptions: No Action sulfamethoxazole-trimethoprim 800-160 mg tablet 1 tab PO BID 7 Days Qty: 14 0RF Referrals Follow up/Referrals: Yadira Ireland APRN [Primary Care Provider] - See instructions Activity Restrictions/Add. Instructions Additional Instructions/Restrictions: You have been evaluated in the ED for your complaints. You may follow-up with your PCP in the next 3 to 5 days. Please return to ED for any new or worsening symptoms. Please continue to monitor your lymph node as discussed. Please take [id number] allergy medications for your upper EXTR symptoms Clinical Impressions Clinical Impression: Lymph node enlargement Discharge ED Provider: Gabriel Rojo General Adult HPI General Chief complaint: Upper Respiratory Infection Stated complaint: lump on top of left leg Time Seen by Provider: 11/08/23 08:29 Mode of Arrival: Ambulatory Source of Information: Patient Limitations: No Limitations Description of Symptoms (Recalled from ER Triage Doc. by RN): Patient states he was seen yesterday for an ingrown toenail and started on antibiotics. Returns today related to a swollen lymph node in his groin, back pain and states he woke up with a sore throat this morning. History of Present Illness HPI narrative: 43-year-old male with past medical history significant for hypertension and high cholesterol presents today for evaluation concerning knot in his groin which he states he noticed on yesterday. Denies any fevers or chills. Denies any dysuria or hematuria. Has been having normal bowel movements. No further complaints. Related Data Previous Rx's Medication Instructions Recorded sulfamethoxazole 800 1 tab PO BID 7 days #14 tabs 11/07/23 mg-trimethoprim 160 mg tablet Allergies Allergy/AdvReac Type Severity Reaction Status Date / Time hydroxyzine AdvReac Severe Agitated Verified 01/10/23 10:33 [facility] Disclaimer: The information contained in this section may have been updated after the patient was seen, as this information can be updated by other users. Medical History DDD (degenerative disc disease), lumbar Glaucoma History of abnormal electrocardiogram HLD (hyperlipidemia) HTN (hypertension), benign Insomnia Surgical History History of mandibular surgery Family History Other No significant family history Social History Smoking Status: Current every day smoker alcohol intake: never current occupational status: employed Travel in the last 8 weeks: None ROS Obtained: Yes All systems reviewed & no additional complaints except as documented Physical Exam General General appearance: alert and in no apparent distress Head Head exam: atraumatic and normocephalic Eye Eye exam: Present normal appearance, PERRL and EOMI ENT ENT exam: Present normal oropharynx and mucous membranes moist Neck Neck exam: Present full ROM; Absent meningismus Respiratory Respiratory exam: Absent respiratory distress, wheezes, stridor or accessory muscle use Cardiovascular Cardiovascular exam: Present normal rhythm Abdominal Exam Abdominal exam: Present soft; Absent distention, tenderness, guarding, rebound or rigidity Neurological Exam Neurological exam: Present alert, oriented X3 and CN II-XII intact; Absent motor sensory deficit Psychiatric Psychiatric exam: Present normal affect and normal mood Skin Skin exam: Present warm and dry Lymphatic Lymphatic Findings: L inguinal node enlarged Medical Decision Making Medical Records Medical records reviewed: Yes I reviewed the patient's medical records. Dada Inquiry Pt receiving controlled substance: No Dada was queried for this patient: No Vital Signs: 11/08/23 08:16 Temperature 97.6 F Temperature Source Oral Pulse Rate [Radial] 76 Respiratory Rate 18 Blood Pressure [Right Arm] 155/89 H Blood Pressure Mean [Right Arm] 111 Blood Pressure Source [Right Arm] Automatic Cuff Blood Pressure Position [Right Arm] Sitting 02 Sat by Pulse Oximetry 97 Oxygen Delivery Method Room Air Medical Decision Narrative: 43-year-old male with past medical history significant for hypertension and high cholesterol presents today for evaluation concerning knot in his groin which he states he noticed on yesterday. Denies any fevers or chills. Denies any dysuria or hematuria. Has been having normal bowel movements. On assessment he was medically stable and in no acute distress. Afebrile. Chest clear to auscultation bilaterally. Abdomen soft nondistended nontender palpation. exam revealed a small enlarged lymph node on the left with minimal tenderness to palpation. No overlying skin changes. No testicular tenderness. No hernias palpated. I discussed with patient ED workup and clinical diagnosis of inguinal lymphadenopathy which can present in the setting of infection. Offered urinalysis however patient declined at this time as he is not having any urinary symptoms. Provided him with return precautions and instructions concerning follow-up. He is on Bactrim after having an ingrown toenail removed on yesterday. He will continue this medication. He was subsequently discharged stable and in no acute distress Critical Care Critical Care Time Critical Care Time: No
--- NOTE | 2023-11-08 08:35 | PC.NURSE ---
Dr. Rojo at bedside
[2023-11-08 08:54] VITALS: BP 155/84; PULSE 78; RESP 16; TEMP 36.7; O2SAT 98
== END 2023-11-08 08:55 | disposition home or self-care (01) ==
PROVIDERS: Emergency Provider Emergency Medicine; PCP Nurse Practitioner
DX: R59.0 Localized enlarged lymph nodes (principal); I10 Essential (primary) hypertension; E78.5 Hyperlipidemia, unspecified; F17.210 Nicotine dependence, cigarettes, uncomplicated
CPT/HCPCS: 99282

== ENCOUNTER 2025-03-23 15:49 | Outpatient (CLI) | payer MEDICAID, SELFPAY ==
--- OUTSIDE RECORDS SUMMARY | 2025-03-03 08:59 | XMS_ITS | Encounter Summary ---
Author Organization [facility] Address [address] [facility] [place] [address] Care Team Providers Care Coil Strapper Name Role Phone Nonstaff, Referring Primary Care Provider Jose barton Reason for Visit * Reason Comments Nasal Congestion 5 days with sneezing . Taking my allergy meds Encounter Details Date Type Department Care Team (Late st Contact Info) Description 03/03/2025 8:59 AM EDT - 03/03/2025 9:35 AM EDT Emergency [facility] [address] [facility] [place] [address] Johnson oDwney MD [address] [place] [id number] Rhinorrhea (Primary Dx) Discharge Disposition: Home or Self Care Social History Tobacco Use Types Packs/Day Years Used Date Smoking Tobacco: Former Cigarettes Smokeless Tobacco: Never Tobacco Cessation:Counseling Given: Not Answered Alcohol Use Standard Drinks/Week Comments Never 0 (1 standard drink = 0.6 oz pur e alcohol) Sex and Gender Information Value Date Recorded Sex Assigned at Not on file Legal Sex Male 9:21 PM EDT Gender Identity Not on file Sexual Orientation Not on file documented as of this encounter Last Filed Vital Signs Vital Sign Reading Time Taken Comments Blood Pressure 141/94 03/03/2025 9:26 AM EDT Pulse 87 03/03/2025 8:23 AM EDT Temperature 36.8 C (98.3 F) 03/03/2025 8:33 AM EDT Respiratory Rate 18 03/03/2025 8:23 AM EDT Oxygen Saturation 97% 03/03/2025 8:23 AM EDT Inhaled Oxygen Concentration - - Weight 113.4 kg (250 lb) 03/03/2025 8:23 AM EDT Height 188 cm (6' 2 ) 03/03/2025 8:23 AM EDT Body Mass Index 32.1 03/03/2025 8:23 AM EDT documented in this encounter Functional Status * Suicide Severity Rating Answer Date of Assessment Author No Risk 03/03/2025 8:25 AM EDT Bisi Thakkar RN * [place] Suicide Severity Rating Scale (Q shift for moderate and high) Question Answer Date of Assessment Author 1. In the past month, have you wished you were or wished you could go to sleep and not wake up? 0 03/03/2025 8:25 AM EDT Krish Pickard RN 2. In the past month, have you actually had any thoughts of killing yourself? (If no, skip to question 6) 0 03/03/2025 8:25 AM EDT Krish Pickard RN 6. Have you ever done anything, started to do anything, or prepared to do anything to end your life? 0 03/03/2025 8:25 AM EDT Bisi Sesay RN documented as of this encounter Discharge Instructions * Discharge Instructions* Johnson Downey MD - 03/03/2025 9:14 AM EDT Take medication as prescribed and follow-up with your primary care provider return for worsening signs or symptoms or other concerns; if you do not have a primary care provider call the attached phone number to set up an appoint with a primary care provider documented in this encounter Medications at Time of Discharge azithromycin (ZITHROMAX) 250 mg Oral Tablet Take 2 tablets (500 mg) on Day 1, followed by 1 tablet (250 mg) once daily on Days 2 through 5. 6 Tablet 07/31/2024 carbamide peroxide (DEBROX) 6.5 % Otic Drops Place 5 Drops into both ears as needed for Other (wax buildup). 15 mL 01/28/2024 cetirizine (ZYRTEC) 10 mg Oral Tablet Take 10 mg by mouth. 01/23/2024 FLONASE ALLERGY RELIEF 50 mcg/actuation Nasl Velpen, Suspension 1 Velpen by Nasal route. pseudoephedrine (SUDAFED) 60 mg Oral Tablet Take 1 Tablet by mouth every 6 hours for 5 days. 20 Tablet 03/03/2025 03/08/2025 documented as of this encounter Ordered Prescriptions Prescription Sig Dispense Quantity Refills Last Filled Start Date End Date pseudoephedrine (SUDAFED) 60 mg Oral Tablet Take 1 Tablet by mouth every 6 hours for 5 days. 20 Tablet 03/03/2025 03/08/2025 documented in this encounter Discharge Disposition Disposition Code Departure Means Destination Comment s Home or Self [place] documented in this encounter ED Notes * Johnson Downey MD - 03/03/2025 8:22 AM EDT CHIEF COMPLAINT: Congestion, runny nose HISTORY OF PRESENT ILLNESS: The patient is a 45-year-old male who presents to the emergency department today out of concern for nasal congestion and runny nose. Patient tells me that 4 days ago he started to have significant drainage coming from both of his nostrils. He states that he has not had any cough or fever or chills but states that his nose will not stop running. He states that his nose leaks clear drainage and he tells me that it will not stop. He states that he blows his nose and dries his nose out but then tells me as soon as he wipes it within minutes it will start draining cleardrainage again. States that he has been sneezing. States that he feels well otherwise. He relates that he takes cetirizine as well as Flonase. He tells me that this does not seem to be helping. States that he feels well otherwise but would like something to help with his runny nose. Does not assessto chest pain shortness of breath abdominal pain back pain headache or fever/chills. PAST MEDICAL HISTORY: Please see electronic medical record Medications: Reviewed per nursing records Allergies: Reviewed per nursing records Surgeries: Please see electronic medical record SOCIAL HISTORY: Patient denies the use of tobacco products but drinks alcohol socially and does smoke marijuana FAMILY HISTORY: Noncontributory REVIEW OF SYSTEMS: 14-point review of systems completed and found to be negative except as mentioned and denoted in the history of present illness VITAL SIGNS: ED Triage Vitals Temp 03/03/25 0833 98.3 ??F (36.8 ??C) Pulse 03/03/25 0823 87 Resp 03/03/25 0823 18 BP 03/03/25 0835 (!) 142/94 SpO2 03/03/25 0823 97 % Height 03/03/25 0823 6' 2 (1.88 m) Weight 03/03/25 0823 250 lb (113.4 kg) PHYSICAL EXAMINATION: General: Well developed, well nourished, well-appearing, in no acute distress Skin: Warm and dry, no signs of pallor or cyanosis HEENT: Normocephalic, appearing atraumatic, moist mucous membranes, no lymphadenopathy, conjunctivae appearing unremarkable, trachea midline, oropharynx appearing unremarkable, mild bilateral nasal congestion and clear rhinorrhea noted bilaterally Cardiac: Regular rate and regular rhythm, no rubs murmurs or gallops appreciated Pulmonary: Symmetric chest excursion, clear to auscultation bilaterally, normal air movement throughout the chest, no signs of respiratory distress/labor Abdominal: Soft, nontender, nondistended, normoactive bowel sounds, no signs of rebound or guarding, no signs of palpable masses appreciated Extremity: No signs of peripheral cyanosis or pitting edema or clubbing, appearing atraumatic Neurological: Alert and oriented x3, GCS 15 LABORATORY/IMAGING STUDIES: None *Imaging independently reviewed and interpreted by myself and consistent with: N/A MEDICAL DECISION MAKING: Upon initial examination, the patient appears hemodynamically stable and in no acute distress. On my examination the patient is alert and oriented and resting comfortably in no distress. Patient systemically looks well. Not toxic. Cardiopulmonary exam benign. HEENT examinati on remarkable for bilateral clear nasal drainage with some mild congestion. No signs of bleeding noted. Patient has not had cough or fever. He has had some sneezing in addition to his increased nasalcongestion. At this current time lower suspicion for infectious etiology although I did offer to test for COVID and viral etiologies of symptoms and patient declines. Symptoms seem to be more allergic anyway given the sneezing associated with it and absence of any cough or fever. Patient is alreadyon Zyrtec and Flonase. Will be given a dose of Sudafed in the emergency department for decongestanteffect and will be prescribed the same. He will be advised to follow-up with primary care provider and return if worse. He understands and he is agreeable and he is discharged in stable condition. CLINICAL IMPRESSION: Rhinorrhea DISPOSITION/PLAN: 1. Sudafed 2. Discharge to home with primary care follow-up Johnson Downey MD 03/03/25 0917 documented in this encounter Plan of Treatment Not on file documented as of this encounter Visit Diagnoses Diagnosis Rhinorrhea- Primary Other diseases of nasal cavity and sinuses documented in this encounter Administered Medications Inactive Administered Medications - up to 1 most recent administrations Medication Order MAR Action Action Date Dose Rate Site pseudoephedrine (SUDAFED) tablet 60 mg 60 mg, Oral, ONCE, 1 dose, On Sun03/03/25 at 0915 Given 03/03/2025 9:18 AM EDT 60 mg documented in this encounter Active and Recently Administered Medications Times are shown in EDT. Scheduled Medication Order 03/01/2025 03/02/2025 03/03/2025 pseudoephedrine (SUDAFED) tablet 60 mg (COMPLETED) 60 mg, Oral, ONCE, 1 dose, On Sun03/03/25 at 0915 0918 (Given - Provid er: Miranda Leong RN) documented in this encounter Orders Medications Ordered That Jerry ht Not Have Been Administered Count Last Ordered Date First Ordered Date pseudoephedrine (SUDAFED) tablet 60 mg 1 documented in this encounter Care Teams Coil Strapper Relationship Specialty Start Date End Date Nonstaff, Referring PCP - General 04/04/23 documented as of this encounter
--- OUTSIDE RECORDS SUMMARY | 2025-03-14 17:09 | XMS_ITS | Encounter Summary ---
Author Organization [place] [place] [address] Care Team Providers Care Logging Assistant Name Role Phone Nonstaff, Referring Primary Care Provider Jose barton Reason for Visit * Reason Comments Neck Pain Since this am, getti ng worse, unknown injury Encounter Details Date Type Department Care Team (Late st Contact Info) Description 03/14/2025 5:09 PM EDT - 03/14/2025 5:38 PM EDT [facility] [address] [place] [address] Clif Aquino MD [address] [place] [id number] Neck pain (Primary Dx) Discharge Disposition: Home or Self Care Social History Tobacco Use Types Packs/Day Years Used Date Smoking Tobacco: Former Cigarettes Smokeless Tobacco: Never Alcohol Use Standard Drinks/Week Comments Never 0 (1 standard drink = 0.6 oz pur e alcohol) Sex and Gender Information Value Date Recorded Sex Assigned at Not on file Legal Sex Male 9:21 PM EDT Gender Identity Not on file Sexual Orientation Not on file documented as of this encounter Last Filed Vital Signs Vital Sign Reading Time Taken Comments Blood Pressure 140/105 03/14/2025 5:37 PM EDT Pulse 80 03/14/2025 5:36 PM EDT Temperature 36.9 C (98.4 F) 03/14/2025 5:21 PM EDT Respiratory Rate 18 03/14/2025 5:36 PM EDT Oxygen Saturation 98% 03/14/2025 5:36 PM EDT Inhaled Oxygen Concentration - - Weight 112 kg (247 lb) 03/14/2025 5:07 PM EDT Height 190.5 cm (6' 3 ) 03/14/2025 5:07 PM EDT Body Mass Index 30.87 03/14/2025 5:07 PM EDT documented in this encounter Functional Status * Suicide Severity Rating Answer Date of Assessment Author No Risk 03/14/2025 5:08 PM EDT Smita Groves RN * [place] Suicide Severity Rating Scale (Q shift for moderate and high) Question Answer Date of Assessment Author 1. In the past month, have y ou wished you were or wished you could go to sleep and not wake up? 0 03/14/2025 5:08 PM EDT Smita Groves RN 2. In the past month, have y ou actually had any thoughts of killing yourself? (If no, skip to question 6) 0 03/14/2025 5:08 PM EDT Smita Groves RN 6. Have you ever done anythi ng, started to do anything, or prepared to do anything to end your life? 0 03/14/2025 5:08 PM EDT Smita Groves RN documented as of this encounter Discharge Instructions * Discharge Instructions* Samantha La APRN - 03/14/2025 5:20 PM EDT Warm moist compresses. Gentle stretching. Muscle relaxant you may take up to [address] or drink alcohol with medication as it can increase sedation. Anti-inflammatories twice daily with food for pain. Antibiotics daily until completed. Follow-up with PCP. documented in this encounter Medications at Time [...] 01/23/2024 FLONASE ALLERGY RELIEF 50 mcg/actuation Nasl [place], Suspension 1 [place] by Nasal route. documented as of this encounter Ordered Prescriptions Prescription Sig Dispense Quantity Refills Last Filled Start Date End Date naproxen (NAPROSYN) 500 mg Oral Tablet Take 1 Tablet by mouth 2 times daily as needed for Pain for up to 30 days. 30 Tablet 03/14/2025 5 cyclobenzaprine (FLEXERIL) 10 mg Oral Tablet Take 1 Tablet by mouth 3 times daily as needed for Muscle spasms (Pain) for up to 30 days. 20 Tablet 03/14/2025 5 cephALEXin (KEFLEX) 500 mg Oral Capsule Take 1 Capsule by mouth 4 times daily for 7 days. 28 Capsule 03/14/2025 5 cephALEXin (KEFLEX) 500 mg Oral Capsule Take 1 Capsule by mouth 4 times daily for 7 days. 28 Capsule 03/14/2025 5 cyclobenzaprine (FLEXERIL) 10 mg Oral Tablet Take 1 Tablet by mouth 3 times daily as needed for Muscle spasms (Pain) for up to 30 days. 20 Tablet 03/14/2025 5 naproxen (NAPROSYN) 500 mg Oral Tablet Take 1 Tablet by mouth 2 times daily as needed for Pain for up to 30 days. 30 Tablet 03/14/2025 5 documented in this encounter Discharge Disposition Disposition Code Departure Means Destination Comment s Home or Self Senior Living documented in this encounter ED Notes * Samantha La APRN - 03/14/2025 5:06 PM EDT Chief Complaint Patient presents with Neck Pain Since this am, getting worse, unknown injury Hayes James is 45 y.o. without significant past medical history that presents to the emergency department presents to the emergency department with complaints of left-sided neck pain that startedthis morning. 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 He states he has pain when he turns from left to right but worse when heturns to the left. He has been rubbing the area. Denies any additional areas of rash but feels a bump. Has not taken any medicine for symptoms. Patient History No Known Allergies Home Medications: Prior to Admission medications Medication Sig Start Date End Date Last Dose Authorizing Provider azithromycin (ZITHROMAX) 250 mg Oral Tablet Take 2 tablets (500 mg) on Day 1, followed by 1 tablet (250 mg) once daily on Days 2 through 5. Patient not taking: Reported on 03/03/2025 07/31/24 Valentín Casillas APRN carbamide peroxide (DEBROX) 6.5 % Otic Drops Place 5 Drops into both ears as needed for Other (wax buildup). Patient not taking: Reported on 03/03/2025 01/28/24 Tanesha Talbot APRN cephALEXin (KEFLEX) 500 mg Oral Capsule Take 1 Capsule by mouth 4 times daily for 7 days. 03/14/25 03/21/25 Samantha La APRN cetirizine (ZYRTEC) 10 mg Oral Tablet Take 10 mg by mouth. 01/23/24 Provider, Historical cyclobenzaprine (FLEXERIL) 10 mg Oral Tablet Take 1 Tablet by mouth 3 times daily as needed for Muscle spasms (Pain) for up to 30 days. 03/14/25 04/13/25 Samantha La APRN FLONASE ALLERGY RELIEF 50 mcg/actuation Nasl [place], Suspension 1 [place] by Nasal route. Provider, Historical naproxen (NAPROSYN) 500 mg Oral Tablet Take 1 Tablet by mouth 2 times daily as needed for Pain for up to 30 days. 03/14/25 04/13/25 Samantha La APRN Past Medical History: History reviewed. No pertinent past medical history. Social History: reports that he has quit smoking. His smoking use included cigarettes. He has neverused smokeless tobacco. He reports that he does not drink alcohol and does not use drugs. E-Cigarettes (such as Vapes or Juul) E-Cigarette Use Former User Family History: No family history on file. Surgical History: History reviewed. No pertinent surgical history. Review of Systems Review of Systems Constitutional: Negative for chills and fever. HENT: Negative. Eyes: Negative. Respiratory: Negative for cough and shortness of breath. Cardiovascular: Negative for chest pain, palpitations and leg swelling. Gastrointestinal: Negative for abdominal pain, diarrhea, nausea and vomiting. Genitourinary: Negative for dysuria and frequency. Musculoskeletal: Positive for arthralgias. Skin: Negative for rash. Neurological: Negative. Psychiatric/Behavioral: Negative. All other systems reviewed and are negative. Physical Exam Blood pressure (!) 131/102, pulse 72, temperature 98.4 ??F (36.9 ??C), temperature source Oral, resp. rate 20, height 6' 3 (1.905 m), weight 247 lb (112 kg), SpO2 100%. Physical Exam Vitals and nursing note reviewed. Constitutional: Appearance: Normal appearance. HENT: Head: Normocephalic and atraumatic. Eyes: Pupils: Pupils are equal, round, and reactive to light. Cardiovascular: Rate and Rhythm: Normal rate and regular rhythm. Pulses: Normal pulses. Heart sounds: Normal heart sounds. Pulmonary: Effort: Pulmonary effort is normal. Breath sounds: Normal breath sounds. Abdominal: General: Abdomen is flat. Palpations: Abdomen is soft. Musculoskeletal: General: Tenderness present. Normal range of motion. Cervical back: Normal range of motion and neck supple. Comments: Patient has no bony tenderness of the midline cervical spine. He has a slight round lump at the base of the neck approximately 1 cm. There is questionable overlying erythema. There is no induration or fluctuance. There is no spontaneous drainage. He has no meningismus Skin: General: Skin is warm and dry. Neurological: General: No focal deficit present. Mental Status: He is alert. Psychiatric: Mood and Affect: Mood normal. Procedures Radiology/EKG/Labs: none ED Course: Appropriate laboratory and radiology studies reviewed ED Course as of 03/14/25 1725 Others' Documentation Sat Mar 14, 2025 172 Patient is presenting with some swelling over the left posterior aspect of his neck. It measures about a centimeter in diameter. It is very flat. It does not feel fluctuant. There is nothing to drain. There is erythema around the area however this could be due to rubbing the area. We will err on the side of caution and put the patient on antibiotics. I do not see anything to drain. He is moving his neck quite well. [KP] ED Course User Index [KP] Clif Aquino MD On arrival to the ED patient is well-appearing and in no acute distress. Afebrile with stable vitalsigns. Suspect either early abscess or musculoskeletal pain, will treat for both. Offered supportive management return precautions and follow-up. Is understanding and agreeable to the plan of care. ED Clinical Impression: 1. Neck pain Critical Care time MDM Medical Decision Making Condition at Discharge/Transfer from Department: Stable This chart was completed using voice recognition technology and may contain unintended errors Samantha La APRN 03/14/251724 Cosigned by Clif Aquino MD at 03/14/2025 5:44 PM EDT Associated attestation - Clif Aquino MD - 03/14/2025 5:44 PM EDT Emergency Department attending supervisory note: The patient was seen in coordination with the MARIAN. I have reviewed the chief complaint, HPI and history sections for this patient. I have participated in the care of this patient and performed the substantive portion of the MDM. I have reviewed the pertinent clinical information including physical exam, labs, radiographic studies and the plan. ED Course as of 03/14/251743 Clif Aquino's Documentation Sat Mar 14, [id number] Patient is presenting with some swelling over the left posterior aspect of his neck. It measures about a centimeter in diameter. It is very flat. It does not feel fluctuant. There is nothing to drain. There is erythema around the area however this could be due to rubbing the area. We will err on the side of caution and put the patient on antibiotics. I do not see anything to drain. He is moving his neck quite well. This chart was completed using voice recognition technology and may contain unintended errors documented in this encounter Plan of Treatment Not on file documented as of this encounter Visit Diagnoses Diagnosis Neck pain- Primary Cervicalgia documented in this encounter Discontinued Medications Medication Sig Discontinue Reason Start Date End Da te naproxen (NAPROSYN) 500 mg Oral Tablet Take 1 Tablet by mouth 2 times daily as needed for Pain for up to 30 days. 03/14/2025 03/14/2025 cyclobenzaprine (FLEXERIL) 10 mg Oral Tablet Take 1 Tablet by mouth 3 times daily as needed for Muscle spasms (Pain) for up to 30 days. 03/14/2025 03/14/2025 cephALEXin (KEFLEX) 500 mg Oral Capsule Take 1 Capsule by mouth 4 times daily for 7 days. 03/14/2025 03/14/2025 documented as of this encounter Care Teams Logging Assistant Relationship Specialty Start Date End Date Nonstaff, Referring PCP - General 04/04/23 documented as of this encounter
[2025-03-23 15:33] LABS: Hematocrit 46.6 % (42.0-52.0); Hemoglobin 15.7 g/dL (14.1-18.0); Immature Granulocytes % 0.2 %; Mean Corpuscular HGB Conc 33.7 g/dL (31.8-35.4); Mean Corpuscular Hemoglobin 29.7 pg (27.0-31.2); Mean Corpuscular Volume 88.3 fl (80-94); Nucleated Red Blood Cells % 0 %; Platelet Count 285 K/mm3 (142-424); Red Blood Count 5.28 M/mm3 (4.60-6.20); Red Cell Distribution Width-SD 39.7 fL; White Blood Count 5.6 K/mm3 (4.8-10.8)
--- OUTSIDE RECORDS SUMMARY | 2025-03-23 15:51 | XMS_ITS | Clinical Summary ---
Author Organization [facility] Address [address] [place] [address] Phone Care Team Providers Care Maintenance Associate Name Role Phone Reaming Machine Operator Unavailable Unavailable Conditions or Problems No information available. Medications No information available. Medications Administered No information available. Allergies, Adverse Reactions, Alerts No information available. Results No information available. Plan of Care No information available. Procedures No information available. Vital Signs No information available. Immunizations No information available. Advance Directives No information available.
--- OUTSIDE RECORDS SUMMARY | 2025-03-23 15:51 | XMS_ITS | Encounter Summary ---
Author Organization [facility] Address [address] [place] [address] Care Team Providers Care Oracle [employer] Consultant Name Role Phone Yadira Ireland APRN Primary Care Provider Encounter Details Date Type Department Care Team (Late st Contact Info) Description 11/15/2022 Orders Only External Location [address] [place] [address] Elan Corrales DO [address] [place] [address] Social History Tobacco Use Types Packs/Day Years Used Date Smoking Tobacco: Never Assessed Sex and Gender Information Value Date Recorded Sex Assigned at Not on file Legal Sex Male 12:47 PM EDT Gender Identity Not on file Sexual Orientation Not on file documented as of this encounter Plan of Treatment Not on file documented as of this encounter Procedures Procedure Name Priority Date/Time Associated Diagnosis Comments CT OUTSIDE IMAGES 11/15/2022 8:29 AM EDT documented in this encounter Results * CT OUTSIDE IMAGES (11/15/2022 8:29 AM EDT) Anatomical Region Laterality Modality Computed Tomogra phy 11/15/2022 8:29 AM EDT us Elan Corrales DO IMG CT PROCEDURES Final Resul t documented in this encounter Visit Diagnoses Not on filedocumented in this encounter Care Teams [employer] Consultant Relationship Specialty Start Date End Date Yadira Ireland APRN [address] [place] [address] PCP - General 11/28/24 documented as of this encounter
--- OUTSIDE RECORDS SUMMARY | 2025-03-23 15:52 | XMS_ITS | Clinical Summary ---
Author Organization [facility] Address [address] [place] [address] Phone Care Team Providers Care Major Account Manager Name Role Phone Nonstaff, Referring Primary Care Provider Unavai lable Allergies No known active allergies Medications cetirizine (ZYRTEC) 10 mg Oral Tablet Take 10 mg by mouth. 01/23/20 24 Active FLONASE ALLERGY RELIEF 50 mcg/actuation Nasl [place], Suspension 1 [place] by Nasal route. Active carbamide peroxide (DEBROX) 6.5 % Otic Drops Place 5 Drops into both ears as needed for Other (wax buildup). 15 mL 01/28/20 24 Active Additional Information Patient not taking.Reported on 03/03/2025 azithromycin (ZITHROMAX) 250 mg Oral Tablet Take 2 tablets (500 mg) on Day 1, followed by 1 tablet (250 mg) once daily on Days 2 through 5. 6 Tablet 07/31/19 25 Active Additional Information Patient not taking.Reported on 03/03/2025 cyclobenzaprin e (FLEXERIL) 10 mg Oral Tablet Take 1 Tablet by mouth 3 times daily as needed for Muscle spasms (Pain) for up to 30 days. 20 Tablet 03/14/20 25 025 Active naproxen (NAPROSYN) 500 mg Oral Tablet Take 1 Tablet by mouth 2 times daily as needed for Pain for up to 30 days. 30 Tablet 03/14/20 25 025 Active pseudoephedrin e (SUDAFED) 60 mg Oral Tablet Take 1 Tablet by mouth every 6 hours for 5 days. 20 Tablet 03/03/20 25 025 naproxen (NAPROSYN) 500 mg Oral Tablet Take 1 Tablet by mouth 2 times daily as needed for Pain for up to 30 days. 30 Tablet 03/14/20 25 025 Discontinued cyclobenzaprin e (FLEXERIL) 10 mg Oral Tablet Take 1 Tablet by mouth 3 times daily as needed for Muscle spasms (Pain) for up to 30 days. 20 Tablet 03/14/20 25 025 Discontinued cephALEXin (KEFLEX) 500 mg Oral Capsule Take 1 Capsule by mouth 4 times daily for 7 days. 28 Capsule 03/14/20 25 025 Discontinued cephALEXin (KEFLEX) 500 mg Oral Capsule Take 1 Capsule by mouth 4 times daily for 7 days. 28 Capsule 03/14/20 25 025 Active Problems Problem Noted Date Diagnosed Date Gross hematuria 06/30/2024 Overview (06/30/2024): Acute onset Jun S/P vasectomy surgery 06/03 Assessment & Plan (06/30/2024 2:43 PM EST): Screen for cause Encounters Date Type Department Care Team Description 03/14/2025 5:09 PM EDT - 03/14/2025 5:38 PM EDT [facility] [address] [facility] [place] [address] Clif Aquino MD Neck pain (Primary Dx) Discharge Disposition: Home or Self Care 03/14/2025 Travel 03/03/2025 8:59 AM EDT - 03/03/2025 9:35 AM EDT [facility] [address] [place] [address] Johnson Downey MD Rhinorrhea (Primary Dx) Discharge Disposition: Home or Self Care from Last 3 Months Social History Tobacco Use Types Packs/Day Years [...] on file Sexual Orientation Not on file Obstetrics History Last Filed Vital Signs Vital Sign Reading [...] Mass Index 30.87 03/14/2025 5:07 PM EDT Plan of Treatment Health Maintenance Due Date Last Done Comments Annual Wellness Exam 01/21/1983 DTaP/TDaP/Td (1 - Tdap) 01/21/1999 Hepatitis B Vaccine (1 of 3 - 19+ 3-dose series) 01/21/1999 Cologuard 01/21/2025 Colon Cancer Screening 01/21/2025 Colonoscopy 01/21/2025 FIT 01/21/2025 Sigmoidoscopy 01/21/2025 Virtual Colonography 01/21/2025 COVID-19 Vaccine (1 - 2023-2 5 season) 2025 Influenza Vaccine (#1) 2025 Meningococcal B Vaccine Aged Out No l onger eligible based on patient's age to complete this topic Pneumococcal Vaccine 0-49 Aged Out No longer eligible based on patient's age to complete this topic Insurance [facility] Care Teams Major Account Manager Relationship Specialty Start Date End Date Nonstaff, Referring PCP - General 04/04/23
--- OUTSIDE RECORDS SUMMARY | 2025-03-23 15:52 | XMS_ITS | Clinical Summary ---
Author Organization [facility] Address [address] [place] [address] Care Team Providers Care Boot And Saddle Repair Person Name Role Phone Yadira Ireland NIDIA Primary Care Provider [phone] Allergies No known active allergies Medications No known medications Social History Tobacco Use Types Packs/Day Years Used Date Smoking Tobacco: Former Cigarettes Passive Smoke Exposure: Past Smokeless Tobacco: Never Tobacco Cessation:Counseling Given: No Sex and Gender Information Value Date Recorded Sex Assigned at Not on file Legal Sex Male 12:47 PM EDT Gender Identity Not on file Sexual Orientation Not on file Last Filed Vital Signs Vital Sign Reading Time Taken Comments Blood Pressure 146/85 11/28/2024 1:35 PM EDT Pulse 52 11/28/2024 1:35 PM EDT Temperature 36.7 C (98.1 F) 11/28/2024 1:35 PM EDT Respiratory Rate - - Oxygen Saturation 95% 11/28/2024 1:35 PM EDT Inhaled Oxygen Concentration - - Weight 124 kg (274 lb 4 oz) 11/28/2024 1:35 PM E DT Height 188 cm (6' 2 ) 11/28/2024 1:35 PM EDT Body Mass Index 35.21 11/28/2024 1:35 PM EDT Plan of Treatment Health Maintenance Due Date Last Done Comments Dental Oral Exam 1980 Dental Prophylaxis 1980 Dental X-Ray: Bitewings 1980 Dental X-Ray: Full Mouth 1980 [facility]-Depression Screening 1980 [facility]-Infant/Child/Adol SDOH Screenings 1980 [facility]-Varicella Vaccines (1 of 2 - 13+ 2-dose series) 01/21/1993 [facility]- SDOH Screenings 01/21/1998 [facility]-Adult SDOH Screenings 01/21/1998 [facility]-DTaP,Tdap,and Td Vaccine s (1 - Tdap) 01/21/1999 [facility]-Hepatitis B Vaccines (1 of 3 - 19+ 3-dose series) 01/21/1999 HPV Vaccines (1 - 3-dose SCD M series) 01/21/2007 CT Colonography 01/21/2025 Colonoscopy 01/21/2025 FIT-DNA 01/21/2025 FIT 01/21/2025 FOBT 01/21/2025 Sigmoidoscopy 01/21/2025 [facility]-Colorectal Cancer Screening 01/21/2025 [id number] Vaccine (1 - 20 24-25 season) 2025 [facility]-Influenza Vaccine (#1) 2025 [facility]-Zoster Vaccines (1 of 2) 01/21/2030 [facility]-HIB Vaccines Aged Out No longer e ligible based on patient's age to complete this topic [facility]-Hepatitis A Vaccines Aged Out No longer eligible based on patient's age to complete this topic [facility]-IPV Vaccines Aged Out No longer e ligible based on patient's age to complete this topic [facility]-Pneumococcal Vaccine: Pediatrics (0 to 5 Years) and At-Risk Patients (6 to 49 Years) Aged Out No long er eligible based on patient's age to complete this topic [facility]-Rotavirus Vaccines Aged Out No lo nger eligible based on patient's age to complete this topic Insurance [facility] [employer] MEDICAID MEDICAID [employer] Care Teams Boot And Saddle Repair Person Relationship Specialty Start Date End Date Yadira Ireland APRN [facility] [place] [address] PCP - General 11/28/24
--- OUTSIDE RECORDS SUMMARY | 2025-03-23 15:52 | XMS_ITS | Encounter Summary ---
Author Organization [facility] [place] [address] Care Team Providers Care Spray Applicator Name Role Phone Nonstaff, Referring Primary Care Provider Jose barton Encounter Details Date Type Department Care Team (Latest Contact Info) Description 03/14/2025 Travel Social History Tobacco Use Types Packs/Day Years [...] on file documented as of this encounter Functional Status * Suicide Severity Rating Answer Date of Assessment Author No Risk 03/14/2025 5:08 PM EDT Smita Groves RN * [place] Suicide Severity Rating Scale (Q shift for [...] end your life? 0 03/14/2025 5:08 PM JAYESHT Smita Groves RN documented as of this encounter Plan of Treatment Not on file documented as of this encounter Visit Diagnoses Not on filedocumented in this encounter Care Teams Spray Applicator Relationship Specialty Start Date End Date Nonstaff, Referring PCP - General 04/04/23 documented as of this encounter
[2025-03-23 16:06] LABS: Chloride 102 mmol/L (98-107); Potassium 4.7 mmoL/L (3.5-5.1); Sodium 140 mmol/L (136-145)
[2025-03-23 16:09] LABS: Alanine Aminotransferase 24 U/L (12-78); Alkaline Phosphatase 56 U/L (38-126); Aspartate Amino Transferase 32 U/L (17-59); Bilirubin,Total 0.6 mg/dl (0.2-1.3); Blood Urea Nitrogen 16 mg/dl (9-20); Creatinine,Serum 0.90 mg/dl (0.66-1.25); Estimated Glomerular Filt Rate 91 ml/min (>60); GFR (African American) 110 ML/MIN (>60); Total Protein,Serum 7.4 g/dl (6.3-8.2)
[2025-03-23 16:10] LABS: Calcium 9.7 mg/dl (8.4-10.2); Glucose 93 mg/dl (74-100)
[2025-03-23 16:39] LABS: Thyroid Stimulating Hormone 1.12 uIU/mL (0.465-4.68)
[2025-03-23 17:18] LABS: Hepatitis C Ab Qual. W/ RFX NEGATIVE (Negative)
[2025-03-23 17:38] LABS: Vitamin B12 319 pg/mL (239-931)
[2025-03-23 17:49] LABS: Anion Gap 15.7 mEq/L (5-15); Carbon Dioxide 27 mmol/L (22.0-30.0)
[2025-03-23 17:50] LABS: Albumin Level 4.9 g/dl (3.5-5.0); Albumin/Globulin Ratio 2.0 (1.1-1.8); Globulin 2.5 g/dL (1.3-3.2)
[2025-03-24 06:24] LABS: Hepatitis B Surface Antigen Negative (Negative)
== END 2025-03-23 23:59 | disposition home or self-care (01) ==
LOC: LAB.DROPOF 15:49
PROVIDERS: PCP Nurse Practitioner; Visit Provider Nurse Practitioner
DX: I10 Essential (primary) hypertension (principal); E66.9 Obesity, unspecified; Z86.39 Personal history of other endocrine, nutritional and metabolic disease; Z11.59 Encounter for screening for other viral diseases
CPT/HCPCS: 80053; 82043; 82570; 82607; 84443; 85025; 86803; 87340; 87389